=== PATIENT | male | born 1960 | race Caucasian/White ===

== ENCOUNTER 2016-07-17 12:33 | Inpatient (IN) | payer MEDICARE, OTHER ==
[2016-07-17] VITALS (12 sets, daily range): BP systolic 141–164; BP diastolic 83–99; PULSE 71–93; RESP 16–20; TEMP 97.5–98.3; O2SAT 94–97
[~2016-07-17 12:33] MED LIST: ADVAI250I PO; APIX5 PO; BENI20TA25 PO; CHOL50006 PO; CLOP75 PO; IPRAAER IN; LIPI20TA PO; PROBCAP4 PO; TAB-TAB PO
[2016-07-17] MEDS ORDERED: SODIUM CHLORIDE 0.9% FLUSH 10 ML FLUSH IV FLUSH PRN (13:30)
[2016-07-17] MEDS ORDERED: IPRAAER INH (14:22)
[2016-07-17] MEDS ORDERED: HYDR25TA5 PO (14:22)
[2016-07-17] MEDS ORDERED: ZOLO100T PO (14:22)
[2016-07-17] MEDS ORDERED: OLME0.09 PO (14:22)
[2016-07-17] MEDS ORDERED: ASPI81CH37 CHEW (14:22)
[2016-07-17] MEDS ORDERED: ALBUAER3 INH (14:22)
[2016-07-17] MEDS ORDERED: WARF-21 PO (14:22)
[2016-07-17] MEDS ORDERED: WARF-23 PO (14:22)
[2016-07-17] MEDS ORDERED: LACTCAP8 PO (14:22)
[2016-07-17] MEDS ORDERED: VITA500T49 PO (14:22)
[2016-07-17] MEDS ORDERED: ATOR1TAB18 PO (14:22)
[2016-07-17] MEDS ORDERED: MULTTAB67 PO (14:22)
[2016-07-17] MEDS ORDERED: VITA100064 PO (14:22)
--- NOTE | 2016-07-17 14:38 | HHI.HP ---
History of Present Illness Chief Complaint: Pt c/o Right worsening calf pain when walking a 1/4 mile Pt also c/o intermittent sudden onset of RLE feeling cold and discolored Pt reported these episodes started 15 months ago on and off with last episode in April of this year History of Present Illness Mr. Alvarez is a pleasant 55/M patient with a PMH of COPD, Hyperlipidemia, HTN and PVD. Pt was seen in our out patient clinic in May 2016 who then c/o Right worsening calf pain when walking a 1/4 mile with intermittent sudden onset of RLE feeling cold and discolored, pt reported these episodes started 15 months ago on and off with last episode in April of this year. No new episodes reported today. Pt overall feels well with no change since last assessment in May. Mr. Alvarez has had bilateral lower extremity bypasses 2 interventions on the right, however he has had multiple interventions for graft thromboses, by his estimate he has had 8 distinct episodes of arterial lysis on the RLE most recently in March and April of this year. The last episodes have been during the time the patient has been on systemic anticoagulation with Coumadin. (Shannon Haque) Past/Family/Social History Past Medical History COPD HTN Hyperlipidemia Peripheral Vascular Disease Past Surgical History Multiple Vascular Interventions for graft thromboses Social History Currently smokes daily (cigarettes) ETOH (20 cans of beer per week) (Shannon Haque) Home Medications Reported Medications Cyanocobalamin (Vitamin B12)500 Mcg Tab1,000 Mcg PO DAILY #1 BOTTLE 07/17/16 Sertraline (Zoloft)100 Mg Khe893 Mg PO DAILY #30 TAB Ref 0 07/17/16 Hydrochlorothiazide 25 Mg Tab25 Mg PO DAILY #30 TAB Ref 0 07/17/16 Warfarin 7.5 Mg Tab7.5 Mg PO #30 TAB Ref 0 07/17/16 Warfarin 5 Mg Tab5 Mg PO #30 TAB Ref 0 07/17/16 Aspirin (Aspirin Low Dose)81 Mg Chew81 Mg CHEW DAILY Ref 0 07/17/16 Lactobacillus Acidophilus (Probiotic)1 Cap Cap1 Cap PO TIDAC #90 CAP Ref 0 07/17/16 Olmesartan 20 Mg Tab20 Mg PO DAILY #30 TAB Ref 0 07/17/16 Multiple Vitamin 1 Tab1 Tab PO DAILY Ref 0 07/17/16 Albuterol 8.5 GM Inh (Proair Hfa 8.5 GM Inh)90 Mcg/Act Aer2 Puff INH Q4-6H PRN ( SHORTNESS OF BREATH) #1 INHALER Ref 0 108 mcg/actuation 07/17/16 Ipratropium-Albuterol Inh (Combivent Respimat Inh)20-100 Chcf/Act Aero1 Puff INH QID #1 INHALER Ref 0 07/17/16 Atorvastatin 80 Mg Tab80 Mg PO HS #30 TAB Ref 0 07/17/16 Cholecalciferol (Vitamin D)1,000 Unit Tab5,000 Units PO DAILY #1 BOTTLE Ref 0 07/17/16 Discontinued Reported Medications Probiotic Product (Probiotic Acidophilus) Cap1 Tab PO DAILY 04/16/15 Discontinued Scripts Olmesartan Medoxomil (Benicar)20 Mg Tab20 Mg PO DAILY #90 TAB Ref 0 Prov:Khang Brown MD 05/12/15 Apixaban (Eliquis)5 Mg Tab5 Mg PO BID 30 Days Prov:Landry Khan DO 04/20/15 Atorvastatin (Lipitor 20 Mg Tab)20 Mg Tab40 Mg PO DAILY #90 TAB Ref 0 Prov:Landry Khan DO 04/20/15 Fluticasone/Salmeterol 250 mcg/50 mcg (Advair Diskus 250/50)Fluticasone/ Salmeterol 250/50 Inh1 Puff PO BID #1 INHALER Ref 0 Needs appointment. Prov:Khang Brown MD 10/06/14 Clopidogrel Bisulfate (Plavix)75 Mg Tab75 Mg PO DAILY #90 TAB Ref 0 Prov:Khang Brown MD 10/06/14 Multiple Vitamin (Multivitamin)1 Tab Tab1 Tab PO DAILY #180 TAB Ref 0 Prov:Khang Brown MD 08/20/14 Ipratropium-Albuterol (Combivent Respimat)Respimat Aer1 Inhalation IN DIRECTED #1 AER Ref 0 Prov:Khang Brown MD 08/20/14 Cholecalciferol (Vitamin D)5,000 Unit Tab5,000 Unit PO DAILY #90 TAB Ref 1 Prov:Khang Brown MD 08/20/14 Coded Allergies: No Known Allergies (Verified , 04/16/15) Review of Systems Musculoskeletal: COMPLAINS OF: Joint pain, Muscle aches (Right calf pain when walking a 1/4 mile ), Stiffness, Joint Swelling, Back pain, Neck pain (Shannon Haque) Physical Exam Vitals/I&O Date Time Temp Pulse Resp B/P Pulse Ox O2 Delivery O2 Flow Rate FiO2 07/17/16 13:50 98.3 91 17 149/99 97 Neuro: Pt A&OX3 in NAD GCS 15 CN 2-12 Intact Normal neuro assessment without focal findings Neck: Supple NO JVD Distention Heart: RRR + S1, S2 Lungs: CTA w/o wheezes Breath sounds equal bilaterally No accessory muscle use Abdomen: S/NT Vascular: Strong palpable Bilat Radial/Femoral/DP Bilat LE warm with motor intact Cap refill less than 3 sec No wounds or ulcers present Extremities: Full ROM without swelling or tenderness UE strength 5/5 LE strength 5/5 (Shannon Haque) Assessment and Plan Assessment: (1) PAD (peripheral artery disease) Status: Chronic Plan Plan Angiogram on Sun07/19/16 with RLE bypass scheduled for later this week Hold Coumadin therapy Labs drawn today Shannon BELL [facility]/[employer] [phone] (Shannon Haque) Plan Pt w/ R LE bypass which has undergone arterial lysis x 8, clearly failing. Admitted for coumadin reversal in preparation for angiogram and re-do distal bypass, likely with arm vein. (Marco Antonio Fernández MD) Shannon Haque Jul 17, 2016 14:38 Marco Antonio Fernández MD Jul 17, 2016 16:32
[2016-07-17] MEDS ORDERED: ALBUTEROL SULFATE 90 MCG/ACT HFA 18 GM INHALER INH PRN (15:15)
[2016-07-17 15:46] LABS: HEMATOCRIT 42.9 % (39.0-51.0); MEAN CELL VOLUME 93.6 FL (80.0-100.0); MEAN CORPUSCULAR HEMOGLOBIN 31.4 PG (27.0-34.0); MEAN CORPUSCULAR HGB CONC 33.6 % (32.0-36.0); PLATELET COUNT 196 TH/MM3 (150-450); RED BLOOD COUNT 4.58 MIL/MM3 (4.50-5.90); RED CELL DISTRIBUTION WIDTH 14.4 % (11.6-17.2); REVIEW FLAG FINAL; WHITE BLOOD COUNT 7.9 TH/MM3 (4.0-11.0)
[2016-07-17 15:57] LABS: BICARBONATE 26.4 MEQ/L (21.0-32.0); POTASSIUM 3.6 MEQ/L (3.5-5.1)
[2016-07-17] MEDS ORDERED: LORazepam 2 MG TAB PO PRN (16:00)
[2016-07-17] MEDS ORDERED: LORazepam 1 MG TAB PO PRN (16:00)
[2016-07-17] MEDS ORDERED: LORazepam 2 MG/ML VIAL IV PUSH PRN ×4 (16:00)
[2016-07-17] MEDS ORDERED: FLUMAZENIL 0.5 MG/5 ML VIAL IV PUSH PRN (16:00)
[2016-07-17 16:07] LABS: INTERNATIONAL NORMALIZED RATIO 2.3 RATIO; PROTHROMBIN TIME - PATIENT 26.6 SEC (9.8-11.6)
[2016-07-17] MEDS ORDERED: NON-FORMULARY DRUG (Ipratropium-Albuterol Inh (Combivent Respimat Inh) 1 PUFF) INH SCH (18:00)
[2016-07-17] MEDS: ALBUTEROL SULFATE 90 MCG/ACT HFA 18 GM INHALER INH SCH ×2 (18:39→21:00)
[2016-07-17] MEDS: ATORVASTATIN 80 MG TAB PO SCH (21:10)
[2016-07-18] VITALS (27 sets, daily range): BP systolic 145–162; BP diastolic 83–98; PULSE 65–90; RESP 16–19; TEMP 98.1–99.1; O2SAT 94–99
--- NOTE | 2016-07-18 08:36 | PD.VS.PN ---
Subjective Subjective/Hospital Course Pt w/o complaints No new events reported Objective Vitals/I&O Date Time Temp Pulse Resp B/P Pulse Ox O2 Delivery O2 Flow Rate FiO2 07/18/16 08:21 99.1 72 18 162/85 97 07/18/16 07:00 66 07/18/16 06:00 67 07/18/16 05:00 72 07/18/16 04:00 74 07/18/16 04:00 98.4 79 16 148/91 96 07/18/16 03:00 66 07/18/16 02:00 66 07/18/16 01:00 72 07/18/16 00:00 90 07/18/16 00:00 98.1 79 16 149/92 97 07/17/16 23:00 78 07/17/16 22:00 86 07/17/16 21:00 152/88 07/17/16 21:00 84 07/17/16 20:00 98.3 71 16 164/97 94 07/17/16 20:00 78 07/17/16 19:00 86 07/17/16 18:00 90 07/17/16 17:00 72 07/17/16 16:00 77 07/17/16 15:00 97.5 82 20 141/83 95 07/17/16 15:00 78 07/17/16 14:00 93 07/17/16 13:54 83 07/17/16 13:50 98.3 91 17 149/99 97 07/18/16 07/18/16 07/18/16 07:00 15:00 23:00 Intake Total 460 ml Balance 460 ml Physical Exam GENERAL: A&OX3, NAD, GCS15 SKIN: Warm and dry. CARDIOVASCULAR: RRR, +S1,S2 RESPIRATORY: BS CTA GASTROINTESTINAL: Abdomen S/NT MUSCULOSKELETAL: No cyanosis, or edema. bilat feet warm with motor intact, pt moves all ext well with 5/5 strength Palpable bilat DP Laboratory Laboratory Tests Test 07/17/16 15:28 White Blood Count 7.9 Red Blood Count 4.58 Hemoglobin 14.4 Hematocrit 42.9 Mean Corpuscular Volume 93.6 Mean Corpuscular Hemoglobin 31.4 Mean Corpuscular Hemoglobin 33.6 Concent Red Cell Distribution Width 14.4 Platelet Count 196 Mean Platelet Volume 8.5 Prothrombin Time 26.6 Prothromb Time International 2.3 Ratio Sodium Level 139 Potassium Level 3.6 Chloride Level 107 Carbon Dioxide Level 26.4 Anion Gap 6 Blood Urea Nitrogen 6 Creatinine 0.81 Estimat Glomerular Filtration 99 Rate Random Glucose 162 Calcium Level 8.3 Assessment and Plan Assessment: (1) PAD (peripheral artery disease) Status: Chronic Plan Pt w/ R LE bypass which has undergone arterial lysis x 8, clearly failing. Admitted for Coumadin reversal in preparation for angiogram and re-do distal bypass, likely with arm vein. Plan Hold Coumadin NPO after midnight Angiogram tomorrow am Right arm restrictions- NO B/P/lab draws Shannon BELL [facility]/[employer] [phone] Shannon Haque Jul 18, 2016 08:35
[2016-07-18] MEDS: CYANOCOBALAMIN 1,000 MCG TAB PO SCH (08:40)
[2016-07-18] MEDS: CHOLECALCIFEROL (VIT D3) 5000 UNIT CAP PO SCH (08:40)
[2016-07-18] MEDS: HYDROCHLOROTHIAZIDE 25 MG TAB PO SCH (08:40)
[2016-07-18] MEDS: SERTRALINE HCL 100 MG TAB PO SCH (08:40)
[2016-07-18] MEDS: MULTIVITAMIN TAB PO SCH (08:40)
[2016-07-18] MEDS: LOSARTAN 50 MG TAB PO SCH (08:40)
[2016-07-18] MEDS: ALBUTEROL SULFATE 90 MCG/ACT HFA 18 GM INHALER INH SCH ×4 (08:41→21:54)
[2016-07-18] MEDS: TIOTROPIUM BROMIDE 18 MCG INH INH SCH (08:41)
[2016-07-18] MEDS: ASPIRIN 81 MG CHEW TAB CHEW SCH (08:41)
[2016-07-18] MEDS: oxyCODONE/ACETAMINOPHEN 5 MG/325 MG TAB PO PRN ×3 (08:41→21:54)
[2016-07-18 17:08] LABS: INTERNATIONAL NORMALIZED RATIO 1.6 RATIO
[2016-07-18] MEDS: ATORVASTATIN 80 MG TAB PO SCH (21:54)
[2016-07-18] MEDS: ZOLPIDEM TARTRATE 5 MG TAB PO PRN (22:06)
[2016-07-19] VITALS (24 sets, daily range): BP systolic 142–150; BP diastolic 83–91; PULSE 59–92; RESP 16–20; TEMP 98–98.5; O2SAT 98–100
--- NOTE | 2016-07-19 05:58 | PD.VS.PN ---
Pre-operative Note Pre-operative diagnosis: failing R LE bypass, PAD Planned procedure: Aortogram w/ R LE angiogram Interval History: Pt admitted for coumadin reversal: INR 2.3 to 1.6 yesterday, coumadin held. No interval change. Labs: Laboratory Results Test 07/17/16 07/18/16 15:28 16:35 White Blood Count 7.9 TH/MM3 (4.0-11.0) Red Blood Count 4.58 MIL/MM3 (4.50-5.90) Hemoglobin 14.4 GM/DL (13.0-17.0) Hematocrit 42.9 % (39.0-51.0) Mean Corpuscular Volume 93.6 FL (80.0-100.0) Mean Corpuscular Hemoglobin 31.4 PG (27.0-34.0) Mean Corpuscular Hemoglobin 33.6 % Concent (32.0-36.0) Red Cell Distribution Width 14.4 % (11.6-17.2) Platelet Count 196 TH/MM3 (150-450) Mean Platelet Volume 8.5 FL (7.0-11.0) Sodium Level 139 MEQ/L (136-145) Potassium Level 3.6 MEQ/L (3.5-5.1) Chloride Level 107 MEQ/L (98-107) Carbon Dioxide Level 26.4 MEQ/L (21.0-32.0) Anion Gap 6 MEQ/L (5-15) Blood Urea Nitrogen 6 MG/DL (7-18) Random Glucose 162 MG/DL (74-106) Calcium Level 8.3 MG/DL (8.5-10.1) Prothromb Time International 1.6 RATIO Ratio Blood: none needed Imaging: will make in OR Orders: NPO No antibiotics necessary Post-operative destination: DOCU then floor Cardiac diet after angio then NPO after MN tonight for bypass tomorrow () Operative site marked: Yes Consent: Informed consent has been obtained from Olu Alvarez. I have explained the procedure in detail and discussed the risks, benefits, and potential complications. All questions have been answered. Marco Antonio Fernández MD Jul 19, 2016 05:58
[2016-07-19] MEDS ORDERED: HEPARIN SODIUM - IV 10,000 UNITS/10 ML VIAL ONE (08:16)
[2016-07-19] MEDS ORDERED: MIDAZOLAM HCL 5 MG/ML VIAL (1 ML) ONE (08:17)
[2016-07-19] MEDS ORDERED: IOHEXOL 300 MG/ML 50 ML BTL (for RAD DIAG) OTHER ONE (08:33)
--- NOTE | 2016-07-19 08:50 | HHI.PR ---
Immediate Post Op Note Procedure Date: Jul 19, 2016 Pre Op Diagnosis: failing R LE bypass, PAD Post Op Diagnosis: failing R LE bypass, PAD Surgeon: Marco Antonio Fernández Client Success Director(s): none Procedure: Aortogram w/ R LE angiogram Findings: patent bypass PAINT MIXER HAND/proximal SFA to BK pop good runoff Additional Information: 4F sheath to be removed in DOCU from LEFT groin Complications: none Specimen(s) removed: none Estimated blood loss: 5 mL Anesthesia: MAC Drains: None Patient to: Other (DOCU) Marco Antonio Fernández MD Jul 19, 2016 08:50
[2016-07-19] MEDS: SERTRALINE HCL 100 MG TAB PO SCH (12:18)
[2016-07-19] MEDS: HYDROCHLOROTHIAZIDE 25 MG TAB PO SCH (12:18)
[2016-07-19] MEDS: LOSARTAN 50 MG TAB PO SCH (12:18)
[2016-07-19] MEDS: TIOTROPIUM BROMIDE 18 MCG INH INH SCH (12:19)
[2016-07-19] MEDS: ALBUTEROL SULFATE 90 MCG/ACT HFA 18 GM INHALER INH SCH ×4 (12:19→21:00)
[2016-07-19] MEDS: MULTIVITAMIN TAB PO SCH (12:19)
[2016-07-19] MEDS: ASPIRIN 81 MG CHEW TAB CHEW SCH (12:19)
[2016-07-19] MEDS: CYANOCOBALAMIN 1,000 MCG TAB PO SCH (12:19)
[2016-07-19] MEDS: CHOLECALCIFEROL (VIT D3) 5000 UNIT CAP PO SCH (12:19)
[2016-07-19] MEDS: oxyCODONE/ACETAMINOPHEN 5 MG/325 MG TAB PO PRN ×2 (12:20→18:23)
--- NOTE | 2016-07-19 13:33 | MP ---
cc: MARCO ANTONIO FERNÁNDEZ MD DATE OF SURGERY: 07/19/2016 PREOPERATIVE DIAGNOSIS Failing right lower extremity bypass. POSTOPERATIVE DIAGNOSIS Failing right lower extremity bypass. PROCEDURE Aortogram with right lower extremity angiogram. ATTENDING SURGEON Marco Antonio Fernández MD ANESTHESIA Mild sedation with local. INDICATIONS FOR SURGERY Mr. Alvarez is a gentleman who has a right femoral to popliteal artery bypass. This has failed eight times, it had been lysed, all of these done elsewhere. He presents for preoperative planning for a redo bypass with autogenous conduit. DESCRIPTION OF PROCEDURE Informed consent was obtained from the patient. He was taken to the operating room and placed supine on the operating table. Appropriate time-out was taken to insure the patient identity, the operative site and planned procedure. No antibiotics were necessary since this is a clean procedure without planned implantation or any foreign object. Everyone in the room agreed with timeout and we proceeded. There was no prior catheterization imaging available for my review. Both groins were prepped and draped and the left groin was anesthetized with 1% lidocaine. A 21 gauge micropuncture needle was used to access the left common femoral artery, this was exchanged using Seldinger technique with micropuncture sheath through which a 0.035 Glidewire was introduced. The micropuncture sheath was exchanged for a 4-[place] sheath and a VCF catheter was placed over the wire into the sheath and aortogram with pelvic arteriogram arteriogram was obtained. The Glidewire was reintroduced and navigated down to the right common femoral artery and the VCF catheter was advanced over this and a right lower extremity arteriogram was obtained. Wire, catheter and sheath were removed, pressure was held for hemostasis and there were no complications. I was present and scrubbed for the entire procedure. INTERPRETATION IMAGES The patient had patent renal arteries, patent infrarenal aorta, patent common iliac arteries, patent external carotid and hypogastric arteries bilaterally. The right common femoral artery and profunda are patent. The SFA is occluded. There is a bypass that emanates immediately opposite the profunda orifice, it appears to be prosthetic and the outflow of the bypass was below-knee popliteal artery. There is three-vessel runoff down below this. Marco Antonio Fernández MD RJF/TLAzael /11:38 AM /1:04 PM JOVI
--- NOTE | 2016-07-19 19:51 | PD.VS.PN ---
Pre-operative Note Pre-operative diagnosis: Failing R LE bypass, PAD Planned procedure: R LE bypass (redo) with R leg and maybe R UE vein Interval History: PT admitted for coumadin reversal. Ready for OR. Motor intact. Labs: Laboratory Results Test 07/17/16 07/18/16 15:28 16:35 White Blood Count 7.9 TH/MM3 (4.0-11.0) Red Blood Count 4.58 MIL/MM3 (4.50-5.90) Hemoglobin 14.4 GM/DL (13.0-17.0) Hematocrit 42.9 % (39.0-51.0) Mean Corpuscular Volume 93.6 FL (80.0-100.0) Mean Corpuscular Hemoglobin 31.4 PG (27.0-34.0) Mean Corpuscular Hemoglobin 33.6 % Concent (32.0-36.0) Red Cell Distribution Width 14.4 % (11.6-17.2) Platelet Count 196 TH/MM3 (150-450) Mean Platelet Volume 8.5 FL (7.0-11.0) Sodium Level 139 MEQ/L (136-145) Potassium Level 3.6 MEQ/L (3.5-5.1) Chloride Level 107 MEQ/L (98-107) Carbon Dioxide Level 26.4 MEQ/L (21.0-32.0) Anion Gap 6 MEQ/L (5-15) Blood Urea Nitrogen 6 MG/DL (7-18) Random Glucose 162 MG/DL (74-106) Calcium Level 8.3 MG/DL (8.5-10.1) Prothromb Time International 1.6 RATIO Ratio Blood: T&C 2U Imaging: CLIPMAN to BK pop bypass Orders: NPO after MN Ancef 1g IV OCTOR Post-operative destination: PACU, CIC Operative site marked: Yes Consent: Informed consent has been obtained from Olu Alvarez. I have explained the procedure in detail and discussed the risks, benefits, and potential complications. All questions have been answered. Marco Antonio Fernández MD Jul 19, 2016 19:51
[2016-07-19] MEDS: ZOLPIDEM TARTRATE 5 MG TAB PO PRN (21:30)
[2016-07-19] MEDS: ATORVASTATIN 80 MG TAB PO SCH (21:30)
[2016-07-19] MEDS: LACTATED RINGER'S 1000 ML INJ 1,000 ML IV SCH (22:53)
[2016-07-20] VITALS (18 sets, daily range): BP systolic 116–159; BP diastolic 76–95; PULSE 62–117; RESP 16–18; TEMP 97.8–98.8; O2SAT 96–100
[2016-07-20] MEDS: oxyCODONE/ACETAMINOPHEN 5 MG/325 MG TAB PO PRN ×2 (00:05→06:46)
[2016-07-20] MEDS ORDERED: THROMBIN (TOPICAL) 20,000 UNIT SPRAY KIT ONE ×2 (07:11→12:04)
[2016-07-20] MEDS ORDERED: HEPARIN SODIUM - IV 10,000 UNITS/10 ML VIAL ONE (07:11)
[2016-07-20] MEDS ORDERED: PROTAMINE SULFATE 50 MG/5 ML VIAL ONE (07:12)
[2016-07-20] MEDS ORDERED: fentaNYL CITRATE 250 MCG/5 ML AMP ONE ×2 (07:32→13:37)
[2016-07-20] MEDS ORDERED: ACETAMINOPHEN 1000 MG/100 ML VIAL IV ONE (07:33)
[2016-07-20] MEDS ORDERED: MIDAZOLAM HCL 2 MG/2 ML VIAL ONE (07:39)
[2016-07-20] MEDS ORDERED: FAMOTIDINE 20 MG/2 ML VIAL ONE (07:39)
[2016-07-20] MEDS ORDERED: ceFAZolin 2 GM PREMIX 50 ML ONE ×2 (07:48→12:23)
[2016-07-20] MEDS ORDERED: HYDROmorphone HCL PF 2 MG/ML VIAL ONE (07:51)
[2016-07-20] MEDS ORDERED: SODIUM CHLORID 0.9% 500 ML INJ 500 ML IV ONE (12:00)
[2016-07-20] MEDS ORDERED: NEOSTIGMINE METHYLSULFATE 10 MG/10 ML VIAL IV PUSH ONE (12:00)
[2016-07-20] MEDS ORDERED: ONDANSETRON HCL 4 MG/2 ML VIAL IV PUSH ONE (12:00)
[2016-07-20] MEDS ORDERED: LACTATED RINGER'S 1000 ML INJ 1,000 ML IV ONE (12:00)
[2016-07-20] MEDS ORDERED: NORMOSOL R INJ 2,000 ML IV ONE (12:00)
[2016-07-20] MEDS ORDERED: PROPOFOL 200 MG/20 ML AMP IV ONE (12:00)
[2016-07-20] MEDS ORDERED: ePHEDrine/NS 25 MG/5 ML SYR IV ONE (12:00)
[2016-07-20] MEDS ORDERED: THROMBIN (TOPICAL) 20,000 UNIT SPRAY KIT OTHER ONE (12:13)
--- NOTE | 2016-07-20 13:08 | HHI.PR ---
Immediate Post Op Note Procedure Date: Jul 20, 2016 Pre Op Diagnosis: Failing R LE bypass, PAD Post Op Diagnosis: Failing R LE bypass, PAD Surgeon: Marco Antonio Fernández Electronic Die Maker(s): Ramon Dove Procedure: R COUGAR HUNTER-BK pop bypass (redo) using R cephalic vein Findings: intense scar tissue Additional Information: Good DP Signal at end of case Complications: none apparent Specimen(s) removed: none Estimated blood loss: 250mL Anesthesia: General Drains: None Fluids: 3000mL x'oid; 1000 UOP IVF Patient to: PACU Patient Condition: Good Date/Time of Procedure: SEE SURGICAL CARE RECORD Marco Antonio Fernández MD Jul 20, 2016 13:08
[2016-07-20] MEDS ORDERED: *RESP: ALBUTEROL 2.5 MG/3 ML NEB (PRN) PERIprocedural Use ONLY NEB ONE (13:25)
[2016-07-20] MEDS ORDERED: DO NOT ADM ANY ANTICOAGULANT DRUGS PRN (13:27)
[2016-07-20] MEDS: LACTATED RINGER'S 1000 ML INJ 1,000 ML IV SCH ×2 (13:56→15:04)
[2016-07-20] MEDS ORDERED: HYDROmorphone HCL 2 MG TAB PO PRN (14:00)
[2016-07-20] MEDS ORDERED: MORPHINE SULFATE 4 MG/ML INJ IV PRN (14:00)
[2016-07-20] MEDS: ASPIRIN 81 MG CHEW TAB CHEW SCH (15:03)
[2016-07-20] MEDS ORDERED: NALOXONE HCL 0.4 MG/ML AMP IV PRN (15:15)
[2016-07-20] MEDS: MULTIVITAMIN TAB PO SCH (15:22)
[2016-07-20] MEDS: TIOTROPIUM BROMIDE 18 MCG INH INH SCH (15:22)
[2016-07-20] MEDS: LOSARTAN 50 MG TAB PO SCH (15:22)
[2016-07-20] MEDS: SERTRALINE HCL 100 MG TAB PO SCH (15:22)
[2016-07-20] MEDS: CHOLECALCIFEROL (VIT D3) 5000 UNIT CAP PO SCH (15:22)
[2016-07-20] MEDS: HYDROCHLOROTHIAZIDE 25 MG TAB PO SCH (15:22)
[2016-07-20] MEDS: CYANOCOBALAMIN 1,000 MCG TAB PO SCH (15:23)
[2016-07-20] MEDS: ALBUTEROL SULFATE 90 MCG/ACT HFA 18 GM INHALER INH SCH ×3 (15:23→21:00)
[2016-07-20] MEDS: DOCUSATE SODIUM 100 MG CAP PO SCH ×2 (21:00→21:25)
[2016-07-20] MEDS: ZOLPIDEM TARTRATE 5 MG TAB PO PRN (21:24)
[2016-07-20] MEDS: ATORVASTATIN 80 MG TAB PO SCH (21:24)
[2016-07-20] MEDS: PCA - TOTAL MG MORPHINE DELIVERED PER SHIFT SCH (22:00)
--- NOTE | 2016-07-20 23:08 | MP ---
cc: RODRICK FERNÁNDEZ MD DATE OF SURGERY 07/20/16 PREOPERATIVE DIAGNOSIS Failing right lower extremity bypass. POSTOPERATIVE DIAGNOSIS Failing right lower extremity bypass. PROCEDURE 1. Right femoral below-knee popliteal artery bypass 2. Redo procedure. 3. [place] of right cephalic vein SURGEON Jeanine Fernández. FANS CLERK SURGEON Robert Dove ANESTHESIA General INDICATIONS Mr. Alvarez is a 55-year gentleman who has bilateral lower extremity prosthetic bypasses. He has had his right leg prosthetic bypass lysed opened eight separate times. I had a long discussion with the patient and think that in order to preserve his limb, he should have this entire bypass redone with autogenous conduit. Preoperative imaging suggested his ipsilateral saphenous vein was marginal but potentially usable. Intraoperatively, it was found that it was indeed too sclerotic to use as an arterial bypass and as such a right cephalic vein was harvested to perform his bypass. PROCEDURE IN DETAIL Informed consent was obtained from the patient. He was taken to the operating room and placed supine on the operating table. An appropriate time-out was taken to ensure the patient's identity and the operative site and the planned procedure. Two grams of Ancef was initiated prior to skin incision and was redosed 4 hours into the case according to pharmacologic principals. Everyone in the room agreed to the timeout and we proceeded. The right arm and bilateral lower extremities and torso were prepped and draped. An incision was made in the patient's right groin, carried down to subcutaneous tissue with electrocautery. The heath of the previous fem-pop bypass was identified and dissected free as was the profunda and proximal common femoral artery. There was dense scar tissue encountered. All three of these vessels were encircled with vessel loop. The incision was made on medial calf, carried down to subcutaneous tissue with electrocautery. Dense scar tissue was again encountered, but we dissected tediously just distal to this retracting the popliteal and tibial veins and thereby finding the below-knee popliteal artery immediately proximal to the bifurcation into the anterior tibial artery and the TP trunk. The previous distal anastomosis was just cephalad to this. This artery was encircled with a vessel loop. A tunnel was then created between these two. The saphenous vein was identified to the bottom part of groin incision and it was dissected free but, upon doing this, it was found that it was unusable. The proximal and distal ends were clipped with a hemoclip and the vein was kept in saline. An incision was made in patient's right arm in the mid upper arm carried down subcutaneous tissue with electrocautery to the cephalic vein. The cephalic vein was then dissected free from the deltopectoral groove all the way down to the wrist. Side branches were ligated with 3-0 silk and the vein was preserved at all times. The vein was transected proximally and distally. Distally at the wrist it was oversewn with a 3-0 silk. Proximally at the shoulder it was oversewn with 4-0 Prolene. The entire wound was then irrigated, made hemostatic and closed with 2-0 Polysorb, 3-0 Polysorb and 4-0 Monocryl. The vein was flushed, marked for orientation. The patient was systemically heparinized and throughout the remainder of the case ACT was kept greater than 250. Proximal and distal control the common femoral, previous bypass and profunda were obtained with profunda clamps and a longitudinal arteriotomy was made with an 11 blade, extended with [place] scissors. The vein was spatulated and sewn in a reverse fashion with the proximal anastomosis being performed end-to-side with running 5-0 Prolene suture. At the conclusion, the vein was clamped and marked for orientation and passed through the tunnel. The previous fem-pop bypass was then clipped to avoid occlusion of the autogenous vein bypass by competitive flow. The distal popliteal artery was clamped with profunda clamps and a longitudinal arteriotomy was made below 11 blade and extended with [place] scissors. The vein was cut to an appropriate length, spatulated and sewn end-to-side with running 6-0 Prolene suture. At the completion, it was flushed and noted to be hemostatic. The clamps were released. There was a nice and strong Doppler signal in the dorsalis pedis. The anastomoses were made hemostatic with Surgicel and spray thrombin. The heparin was reversed with protamine and all the wounds were closed with 2-0 Polysorb, 3-0 Polysorb and 4-0 Monocryl. Sponge, needle counts were correct at the end of the case. I was present and scrubbed for the entire procedure. MD MARIANELA Newman/ /3:21 PM /10:47 PM MTDCarmelita
[2016-07-20] MEDS: MORPHINE SULFATE 30 MG/30 ML PCA IV SCH (23:46)
[2016-07-21] VITALS (24 sets, daily range): BP systolic 120–143; BP diastolic 73–86; PULSE 89–128; RESP 18–20; TEMP 98–98.8; O2SAT 93–99
[2016-07-21 04:07] LABS: HEMATOCRIT 33.1 % (39.0-51.0); MEAN CELL VOLUME 91.9 FL (80.0-100.0); MEAN CORPUSCULAR HGB CONC 34.8 % (32.0-36.0); PLATELET COUNT 171 TH/MM3 (150-450); REVIEW FLAG FINAL
[2016-07-21 04:32] LABS: BICARBONATE 25.9 MEQ/L (21.0-32.0); POTASSIUM 3.7 MEQ/L (3.5-5.1)
[2016-07-21] MEDS: MORPHINE SULFATE 30 MG/30 ML PCA IV SCH (05:56)
[2016-07-21] MEDS: PCA - TOTAL MG MORPHINE DELIVERED PER SHIFT SCH (06:00)
--- NOTE | 2016-07-21 06:59 | PD.VS.PN ---
Subjective POD #: 1 Procedure(s): R fem-BK pop with R cephalic vein Subjective/Hospital Course Pt had pain yesterday "all over" but had relief with ONLINE MEDIA DIRECTOR; notes that dilaudid works better for pain. R leg cramping but foot okay Otherwise looks great Objective Vitals/I&O Date Time Temp Pulse Resp B/P Pulse Ox O2 Delivery O2 Flow Rate FiO2 07/21/16 06:16 18 07/21/16 06:00 101 07/21/16 06:00 18 07/21/16 05:56 18 07/21/16 05:00 96 07/21/16 04:00 94 07/21/16 03:00 97 Nasal Cannula 2.00 07/21/16 03:00 98.6 98 18 120/73 97 07/21/16 03:00 96 07/21/16 02:00 98 07/21/16 01:00 98 07/21/16 00:00 100 07/20/16 23:46 18 07/20/16 23:00 98.8 102 18 127/84 99 07/20/16 23:00 106 07/20/16 23:00 99 Nasal Cannula 2.00 07/20/16 22:00 96 07/20/16 22:00 16 07/20/16 21:00 104 07/20/16 20:00 106 07/20/16 19:00 98.2 117 18 116/76 98 07/20/16 19:00 96 07/20/16 18:00 108 07/20/16 17:02 107 07/20/16 16:00 109 07/20/16 15:30 98.0 114 16 147/94 96 07/20/16 15:30 102 07/20/16 14:30 99.3 101 14 141/91 96 Nasal Cannula 2 Arterial Line 07/20/16 14:15 100 14 142/89 95 Nasal Cannula 2 Arterial Line 07/20/16 14:00 96 14 141/88 96 Nasal Cannula 2 133/71 07/20/16 13:45 92 14 130/82 95 Nasal Cannula 3 133/71 07/20/16 13:30 103 11 151/92 92 Simple Mask 10 140/71 07/20/16 13:25 98.7 106 17 156/88 92 Simple Mask 10 149/98 07/20/16 07:15 98.0 62 18 159/95 100 07/20/16 07:08 70 Exam: R UE incision c/d/i; appropriate ecchymoses, minimal swelling R groin vac in place R lower leg incision c/d/i Pulses: palpable DP Laboratory Laboratory Tests Test 07/21/16 03:55 White Blood Count 12.0 Red Blood Count 3.60 Hemoglobin 11.5 Hematocrit 33.1 Mean Corpuscular Volume 91.9 Mean Corpuscular Hemoglobin 32.0 Mean Corpuscular Hemoglobin 34.8 Concent Red Cell Distribution Width 14.0 Platelet Count 171 Mean Platelet Volume 8.6 Sodium Level 139 Potassium Level 3.7 Chloride Level 103 Carbon Dioxide Level 25.9 Anion Gap 10 Blood Urea Nitrogen 14 Creatinine 1.01 Estimat Glomerular Filtration 76 Rate Random Glucose 105 Calcium Level 8.2 Assessment and Plan Assessment: (1) PAD (peripheral artery disease) Status: Chronic Plan s/p R fem-BK pop (redo) with R cephalic vein Look great, palpable pulse 1. Change ONLINE MEDIA DIRECTOR to dilaudid 2. OOB/PT 3. Will start plavix tomorrow - anticipate d/c on ASA/plavix 4. Marco Antonio Isaac MD Jul 21, 2016 06:59
[2016-07-21] MEDS ORDERED: NALOXONE HCL 0.4 MG/ML AMP IV PRN (07:00)
[2016-07-21] MEDS: HYDROmorphone HCL PCA 6 MG/30 ML IV SCH ×2 (07:24→16:06)
[2016-07-21] MEDS: ALBUTEROL SULFATE 90 MCG/ACT HFA 18 GM INHALER INH SCH ×4 (08:38→21:00)
[2016-07-21] MEDS: TIOTROPIUM BROMIDE 18 MCG INH INH SCH (08:38)
[2016-07-21] MEDS: HYDROCHLOROTHIAZIDE 25 MG TAB PO SCH (08:39)
[2016-07-21] MEDS: CYANOCOBALAMIN 1,000 MCG TAB PO SCH (08:39)
[2016-07-21] MEDS: DOCUSATE SODIUM 100 MG CAP PO SCH ×2 (08:39→20:59)
[2016-07-21] MEDS: MULTIVITAMIN TAB PO SCH (08:39)
[2016-07-21] MEDS: LOSARTAN 50 MG TAB PO SCH (08:39)
[2016-07-21] MEDS: ASPIRIN 81 MG CHEW TAB CHEW SCH (08:39)
[2016-07-21] MEDS: CHOLECALCIFEROL (VIT D3) 5000 UNIT CAP PO SCH (08:39)
[2016-07-21] MEDS: SERTRALINE HCL 100 MG TAB PO SCH (08:42)
[2016-07-21] MEDS: ENOXAPARIN SODIUM 30 MG/0.3 ML SYRINGE SQ SCH (13:00)
[2016-07-21] MEDS: LACTATED RINGER'S 1000 ML INJ 1,000 ML IV SCH (13:01)
[2016-07-21] MEDS: PCA - TOTAL MG DILAUDID DELIVERED PER SHIFT OTHER SCH ×2 (13:29→22:00)
--- NOTE | 2016-07-21 17:40 | PD.CAR.PN ---
CVT Progress Note Subjective/Hospital Course: 55-year-old gentleman status post femoral to distal bypass using cephalic vein of the right arm Old incisions are clean and dry Patient has excellent pulses in the arm and harvest site is clean, dressing intact Right leg incision so nice and clean with dopplerable pulses and foot is nice and warm Excellent outcome of a very complex procedure We will remove all the dressings tomorrow Patient can be out of bed Objective: Vital Signs Date Time Temp Pulse Resp B/P Pulse Ox O2 Delivery O2 Flow Rate FiO2 07/21/16 17:00 114 07/21/16 16:52 18 07/21/16 16:10 99 07/21/16 16:06 18 07/21/16 15:53 106 07/21/16 15:53 98.0 95 18 138/86 95 07/21/16 15:53 96 Room Air 07/21/16 14:06 18 07/21/16 14:06 113 07/21/16 14:05 18 07/21/16 13:34 105 07/21/16 13:29 18 07/21/16 12:48 128 07/21/16 11:27 98.7 89 18 133/79 96 07/21/16 11:27 100 07/21/16 11:27 96 Room Air 07/21/16 10:07 99 21 07/21/16 10:01 93 07/21/16 09:27 104 07/21/16 08:30 99 Room Air 07/21/16 08:30 98.8 102 18 137/83 99 07/21/16 08:30 93 07/21/16 07:24 18 07/21/16 06:16 18 07/21/16 06:00 101 07/21/16 06:00 18 07/21/16 05:56 18 07/21/16 05:00 96 07/21/16 04:00 94 07/21/16 03:00 97 Nasal Cannula 2.00 07/21/16 03:00 98.6 98 18 120/73 97 07/21/16 03:00 96 07/21/16 02:00 98 07/21/16 01:00 98 07/21/16 00:00 100 07/20/16 23:46 18 07/20/16 23:00 98.8 102 18 127/84 99 07/20/16 23:00 106 07/20/16 23:00 99 Nasal Cannula 2.00 07/20/16 22:00 96 07/20/16 22:00 16 07/20/16 21:00 104 07/20/16 20:00 106 07/20/16 19:00 98.2 117 18 116/76 98 07/20/16 19:00 96 07/20/16 18:00 108 Result Diagram: 07/21/16 0355 07/21/16 0355 Blanco Bailey MD Jul 21, 2016 17:40
[2016-07-21] MEDS: ATORVASTATIN 80 MG TAB PO SCH (21:00)
[2016-07-21] MEDS: ZOLPIDEM TARTRATE 5 MG TAB PO PRN (22:44)
[2016-07-22] VITALS (26 sets, daily range): BP systolic 117–151; BP diastolic 74–90; PULSE 93–122; RESP 16–22; TEMP 98.7–99.5; O2SAT 93–98
[2016-07-22] MEDS: PCA - TOTAL MG DILAUDID DELIVERED PER SHIFT OTHER SCH ×3 (05:57→22:00)
[2016-07-22] MEDS: ALBUTEROL SULFATE 90 MCG/ACT HFA 18 GM INHALER INH SCH ×4 (09:00→21:00)
[2016-07-22] MEDS: CYANOCOBALAMIN 1,000 MCG TAB PO SCH (09:05)
[2016-07-22] MEDS: SERTRALINE HCL 100 MG TAB PO SCH (09:05)
[2016-07-22] MEDS: MULTIVITAMIN TAB PO SCH (09:05)
[2016-07-22] MEDS: DOCUSATE SODIUM 100 MG CAP PO SCH ×2 (09:05→21:50)
[2016-07-22] MEDS: LOSARTAN 50 MG TAB PO SCH (09:05)
[2016-07-22] MEDS: CLOPIDOGREL 75 MG TAB PO SCH (09:05)
[2016-07-22] MEDS: HYDROCHLOROTHIAZIDE 25 MG TAB PO SCH (09:05)
[2016-07-22] MEDS: CHOLECALCIFEROL (VIT D3) 5000 UNIT CAP PO SCH (09:05)
[2016-07-22] MEDS: ASPIRIN 81 MG CHEW TAB CHEW SCH (09:05)
[2016-07-22] MEDS: TIOTROPIUM BROMIDE 18 MCG INH INH SCH (09:06)
--- NOTE | 2016-07-22 09:32 | PD.CAR.PN ---
CVT Progress Note Subjective/Hospital Course: 55-year-old gentleman status post femoral to distal bypass using cephalic vein of the right arm Old incisions are clean and dry Patient has excellent pulses in the arm and harvest site is clean, dressing intact Right leg incision so nice and clean with dopplerable pulses and foot is nice and warm Excellent outcome of a very complex procedure We will remove all the dressings tomorrow Patient can be out of bed 07/22/16 Incisions are clean and dry Foot is warm and patient has dopplerable strong signal pulses Vein donor site is clean and dry as well and patient has good pulses in the arm Objective: Vital Signs Date Time Temp Pulse Resp B/P Pulse Ox O2 Delivery O2 Flow Rate FiO2 07/22/16 08:49 93 21 07/22/16 07:00 99.5 104 19 117/74 93 07/22/16 06:00 16 07/22/16 06:00 100 07/22/16 05:57 16 07/22/16 05:00 98 07/22/16 04:00 107 07/22/16 03:00 98.8 93 18 141/81 93 07/22/16 03:00 106 07/22/16 02:00 118 07/22/16 01:00 100 07/22/16 00:00 108 07/21/16 23:00 98.6 95 18 131/75 95 07/21/16 23:00 104 07/21/16 22:42 18 07/21/16 22:00 114 07/21/16 22:00 18 07/21/16 22:00 18 07/21/16 21:00 110 07/21/16 20:10 21 07/21/16 20:00 112 07/21/16 19:00 106 07/21/16 19:00 98.8 120 20 143/85 93 07/21/16 19:00 93 Room Air 07/21/16 18:00 101 07/21/16 17:00 114 07/21/16 16:52 18 07/21/16 16:10 99 07/21/16 16:06 18 07/21/16 15:53 106 07/21/16 15:53 98.0 95 18 138/86 95 07/21/16 15:53 96 Room Air 07/21/16 14:06 18 07/21/16 14:06 113 07/21/16 13:34 105 07/21/16 13:29 18 07/21/16 12:48 128 07/21/16 11:27 98.7 89 18 133/79 96 07/21/16 11:27 100 07/21/16 11:27 96 Room Air 07/21/16 10:07 99 21 07/21/16 10:01 93 Result Diagram: 07/21/16 0355 07/21/16 0355 Blanco Bailey MD Jul 22, 2016 09:32
[2016-07-22] MEDS: LACTATED RINGER'S 1000 ML INJ 1,000 ML IV SCH (11:00)
[2016-07-22] MEDS: HYDROmorphone HCL PCA 6 MG/30 ML IV SCH ×2 (11:01→18:40)
[2016-07-22] MEDS: ENOXAPARIN SODIUM 30 MG/0.3 ML SYRINGE SQ SCH (13:50)
[2016-07-22] MEDS: ATORVASTATIN 80 MG TAB PO SCH (21:50)
[2016-07-22] MEDS: ZOLPIDEM TARTRATE 5 MG TAB PO PRN (21:51)
[2016-07-23] VITALS (20 sets, daily range): BP systolic 124–153; BP diastolic 70–90; PULSE 90–119; RESP 18–22; TEMP 98–99; O2SAT 92–96
[2016-07-23] MEDS: HYDROmorphone HCL PCA 6 MG/30 ML IV SCH (05:04)
[2016-07-23] MEDS: PCA - TOTAL MG DILAUDID DELIVERED PER SHIFT OTHER SCH (06:00)
[2016-07-23] MEDS: ALBUTEROL SULFATE 90 MCG/ACT HFA 18 GM INHALER INH SCH ×4 (09:00→21:00)
[2016-07-23] MEDS: SERTRALINE HCL 100 MG TAB PO SCH (09:57)
[2016-07-23] MEDS: CHOLECALCIFEROL (VIT D3) 5000 UNIT CAP PO SCH (09:57)
[2016-07-23] MEDS: TIOTROPIUM BROMIDE 18 MCG INH INH SCH (09:57)
[2016-07-23] MEDS: ASPIRIN 81 MG CHEW TAB CHEW SCH (09:58)
[2016-07-23] MEDS: CLOPIDOGREL 75 MG TAB PO SCH (09:58)
[2016-07-23] MEDS: CYANOCOBALAMIN 1,000 MCG TAB PO SCH (09:58)
[2016-07-23] MEDS: DOCUSATE SODIUM 100 MG CAP PO SCH ×2 (09:58→20:21)
[2016-07-23] MEDS: LOSARTAN 50 MG TAB PO SCH (09:58)
[2016-07-23] MEDS: HYDROCHLOROTHIAZIDE 25 MG TAB PO SCH (09:58)
[2016-07-23] MEDS: MULTIVITAMIN TAB PO SCH (09:58)
--- NOTE | 2016-07-23 10:39 | PD.VS.PN ---
Subjective POD #: 3 Procedure(s): redo R fem-BK pop with R cephalic vein Subjective/Hospital Course Pain better controlled OOB no BM since surgery Jason po; voiding well c/w swelling R leg but no foot pain Objective Vitals/I&O Date Time Temp Pulse Resp B/P Pulse Ox O2 Delivery O2 Flow Rate FiO2 07/23/16 07:15 98.0 102 19 153/85 96 07/23/16 07:15 96 07/23/16 06:08 18 07/23/16 06:00 93 07/23/16 06:00 20 07/23/16 05:04 18 07/23/16 05:00 91 07/23/16 04:54 97 07/23/16 04:30 98.8 97 20 124/80 94 07/23/16 04:00 97 07/23/16 03:00 119 07/23/16 02:00 99 07/23/16 01:00 99 07/23/16 00:00 98.7 101 20 129/79 94 07/23/16 00:00 100 07/22/16 23:00 106 07/22/16 22:00 118 07/22/16 22:00 18 07/22/16 22:00 18 07/22/16 21:00 122 07/22/16 20:40 95 07/22/16 20:00 99.0 103 22 151/90 98 07/22/16 20:00 108 07/22/16 19:00 103 07/22/16 18:40 18 07/22/16 18:38 18 07/22/16 18:00 106 07/22/16 17:00 103 07/22/16 16:00 98 07/22/16 15:00 98.7 105 21 129/75 95 07/22/16 15:00 102 07/22/16 14:00 100 07/22/16 14:00 21 07/22/16 13:56 20 07/22/16 13:52 20 07/22/16 13:00 108 07/22/16 12:00 104 07/22/16 11:01 18 07/22/16 11:00 102 07/22/16 11:00 98.9 104 20 127/74 95 07/23/16 07/23/16 07/23/16 07:00 15:00 23:00 Intake Total 788 ml Output Total 350 ml Balance 438 ml Exam: R groin vac in place R lower leg incision c/d/i Modest post-surgical swelling R LE R UE ecchymotic but no hematoma, incision ok Pulses: strong Doppler signal R DP Assessment and Plan Assessment: (1) PAD (peripheral artery disease) Status: Chronic Plan s/p R fem-BK pop (redo) with R cephalic vein Look great, palpable pulse 1. D/C CREDIT CHARGE AUTHORIZER and HL IVF 2. po and IV breakthrough dilaudid 3. D/C tele 4. Pt may shower Marco Antonio Fernández MD Jul 23, 2016 10:39
[2016-07-23] MEDS ORDERED: HYDROmorphone HCL 2 MG TAB PO PRN ×2 (10:45→22:45)
[2016-07-23] MEDS: ENOXAPARIN SODIUM 30 MG/0.3 ML SYRINGE SQ SCH (13:26)
[2016-07-23] MEDS: HYDROmorphone HCL PF 1 MG/ML VIAL IV PRN ×2 (13:27→18:02)
[2016-07-23] MEDS: BISACODYL EC 5 MG TABEC PO PRN (13:46)
[2016-07-23] MEDS: HYDROmorphone HCL PF 1 MG/ML VIAL IV PUSH PRN (20:19)
[2016-07-23] MEDS: ATORVASTATIN 80 MG TAB PO SCH (20:21)
[2016-07-23] MEDS: HYDROmorphone HCL 2 MG TAB PO PRN (20:46)
[2016-07-23] MEDS: ZOLPIDEM TARTRATE 5 MG TAB PO PRN (20:50)
[2016-07-24] VITALS (7 sets, daily range): BP systolic 102–138; BP diastolic 59–89; PULSE 79–109; RESP 18–21; TEMP 98.1–99; O2SAT 95–100
[2016-07-24] MEDS: HYDROmorphone HCL PF 1 MG/ML VIAL IV PUSH PRN ×6 (00:08→23:38)
[2016-07-24] MEDS: HYDROmorphone HCL 2 MG TAB PO PRN ×6 (00:22→21:47)
[2016-07-24] MEDS ORDERED: [UNRECOGNIZED DRUG - OTHER] (08:35)
[2016-07-24] MEDS: CYANOCOBALAMIN 1,000 MCG TAB PO SCH (08:38)
[2016-07-24] MEDS: LOSARTAN 50 MG TAB PO SCH (08:39)
[2016-07-24] MEDS: BISACODYL EC 5 MG TABEC PO PRN (08:39)
[2016-07-24] MEDS: SERTRALINE HCL 100 MG TAB PO SCH (08:39)
[2016-07-24] MEDS: DOCUSATE SODIUM 100 MG CAP PO SCH ×2 (08:39→21:46)
[2016-07-24] MEDS: CHOLECALCIFEROL (VIT D3) 5000 UNIT CAP PO SCH (08:39)
[2016-07-24] MEDS: ALBUTEROL SULFATE 90 MCG/ACT HFA 18 GM INHALER INH SCH ×4 (08:40→21:00)
[2016-07-24] MEDS: MULTIVITAMIN TAB PO SCH (08:40)
[2016-07-24] MEDS: TIOTROPIUM BROMIDE 18 MCG INH INH SCH (08:40)
[2016-07-24] MEDS: ASPIRIN 81 MG CHEW TAB CHEW SCH (08:40)
[2016-07-24] MEDS: HYDROCHLOROTHIAZIDE 25 MG TAB PO SCH (08:40)
[2016-07-24] MEDS: CLOPIDOGREL 75 MG TAB PO SCH (08:40)
--- NOTE | 2016-07-24 10:36 | PD.VS.PN ---
Subjective POD #: 5 Procedure(s): redo R fem-BK pop with R cephalic vein Subjective/Hospital Course Pt in bed alert and in nad Pain controlled Mild swelling to right foot present Wound Vac to Right groin removed w/o difficulty No BM + Flatulence Objective Vitals/I&O Date Time Temp Pulse Resp B/P Pulse Ox O2 Delivery O2 Flow Rate FiO2 07/24/16 08:23 98.1 79 21 114/74 100 07/24/16 04:00 98.4 109 20 130/74 95 07/24/16 00:00 98.7 100 20 125/89 95 07/23/16 20:00 99.0 107 22 151/90 95 07/23/16 18:08 21 07/23/16 15:30 98.1 93 21 124/70 96 07/23/16 14:34 20 07/23/16 13:00 90 07/23/16 12:00 97 07/23/16 11:00 98.0 95 19 129/77 92 07/23/16 11:00 101 07/24/16 07/24/16 07/24/16 07:00 15:00 23:00 Intake Total 240 ml Output Total 400 ml Balance -160 ml Exam: GENERAL: Alert in nad, GCS 15 SKIN: Warm and dry. Incisions to Right arm/groin/upper and lower R leg intact with surgical glue. NO S/R/D present CARDIOVASCULAR: +S1,S2 RESPIRATORY: BS CTA GASTROINTESTINAL: Abdomen S/NT + BS MUSCULOSKELETAL: No cyanosis/ mild 1+ edema to right foot Pulses: + triphasic DP/PT (Bilat) heard via Doppler Bilat feet warm to touch Incisions: Intact with surgical glue NO R/D/S/O Assessment and Plan Assessment: (1) PAD (peripheral artery disease) Status: Chronic Plan s/p R fem-BK pop (redo) with R cephalic vein Look great, palpable pulse Plan PT/OOB Right groin wound vac removed Encourage ambulation as tolerated Shannon BELL [facility]/[place] [phone] Discharge Planning 1-2 days Shannon Haque Jul 24, 2016 10:36
[2016-07-24] MEDS ORDERED: MINERAL OIL ENEMA 118 ML BTL RECTAL PRN (11:00)
[2016-07-24] MEDS: ENOXAPARIN SODIUM 30 MG/0.3 ML SYRINGE SQ SCH (13:18)
[2016-07-24] MEDS: ATORVASTATIN 80 MG TAB PO SCH (21:46)
[2016-07-24] MEDS: ZOLPIDEM TARTRATE 5 MG TAB PO PRN (23:37)
[2016-07-25 03:00] VITALS: BP 144/83; PULSE 90; RESP 18; TEMP 99; O2SAT 97
[2016-07-25] MEDS: HYDROmorphone HCL PF 1 MG/ML VIAL IV PUSH PRN ×5 (03:35→20:45)
[2016-07-25] MEDS: HYDROmorphone HCL 2 MG TAB PO PRN ×3 (06:05→22:30)
[2016-07-25 08:04] VITALS: BP 124/78; PULSE 87; RESP 18; TEMP 98.5; O2SAT 95
[2016-07-25] MEDS: CHOLECALCIFEROL (VIT D3) 5000 UNIT CAP PO SCH (08:10)
[2016-07-25] MEDS: DOCUSATE SODIUM 100 MG CAP PO SCH ×2 (08:10→20:44)
[2016-07-25] MEDS: ASPIRIN 81 MG CHEW TAB CHEW SCH (08:10)
[2016-07-25] MEDS: MULTIVITAMIN TAB PO SCH (08:11)
[2016-07-25] MEDS: LOSARTAN 50 MG TAB PO SCH (08:11)
[2016-07-25] MEDS: SERTRALINE HCL 100 MG TAB PO SCH (08:11)
[2016-07-25] MEDS: CYANOCOBALAMIN 1,000 MCG TAB PO SCH (08:11)
[2016-07-25] MEDS: CLOPIDOGREL 75 MG TAB PO SCH (08:11)
[2016-07-25] MEDS: HYDROCHLOROTHIAZIDE 25 MG TAB PO SCH (08:11)
[2016-07-25] MEDS: TIOTROPIUM BROMIDE 18 MCG INH INH SCH (08:12)
[2016-07-25] MEDS: ALBUTEROL SULFATE 90 MCG/ACT HFA 18 GM INHALER INH SCH ×4 (08:12→20:47)
--- NOTE | 2016-07-25 09:50 | PD.VS.PN ---
Subjective POD #: 6 Procedure(s): redo R fem-BK pop with R cephalic vein Subjective/Hospital Course Pt sitting up in bed eating breakfast Pt is w/o complaints + BM times 2 yesterday Pt ambulating well with PT Objective Vitals/I&O Date Time Temp Pulse Resp B/P Pulse Ox O2 Delivery O2 Flow Rate FiO2 07/25/16 08:04 98.5 87 18 124/78 95 07/25/16 04:07 18 07/25/16 03:00 99.0 90 18 144/83 97 07/24/16 23:00 99.0 100 18 117/72 98 07/24/16 22:57 18 07/24/16 19:00 98.8 100 20 138/84 96 07/24/16 15:08 98.7 94 20 137/70 98 07/24/16 11:15 98.3 97 19 102/59 97 07/25/16 07/25/16 07/25/16 07:00 15:00 23:00 Intake Total 720 ml Balance 720 ml Exam: GENERAL: A&OX3,NAD,GCS 15 SKIN: Warm and dry/Incisions to Right arm/groin/upper and lower R leg intact with surgical glue. NO S/R/D present CARDIOVASCULAR: +S1,S2 RESPIRATORY: BS CTA GASTROINTESTINAL: Abdomen S/NT + BS/+ BM times 2 MUSCULOSKELETAL: No cyanosis/ mild 1+ edema to right foot Pulses: + triphasic DP/PT (Bilat) heard via Doppler Bilat feet warm to touch Assessment and Plan Assessment: (1) PAD (peripheral artery disease) Status: Chronic Plan s/p R fem-BK pop (redo) with R cephalic vein Look great, palpable pulse Plan Continue PT/OOB Encourage ambulation as tolerated D/C planning Shannon BELL [facility] [phone] Discharge Planning Tomorrow AM Shannon Haque Jul 25, 2016 09:50
--- NOTE | 2016-07-25 09:54 | HHI.FF ---
Face to Face Verification Diagnosis: (1) PAD (peripheral artery disease) (2) Ischemia of right lower extremity (3) Foot pain, right Physical Therapy Order: Evaluate and Treat, Improve ambulation, Strength and gait training Home Health Nursing Order: Signs/symptoms of disease process Home Health Aide Order: To Assist In: Bathing and personal care Instructions: Personal Care Management I have seen patient Olu Alvarez on 07/25/16. My clinical findings support the need for the requested home health care services because: Pt is S/ P post redo R fem-BK pop with R cephalic vein, pt will need PT to aid in optimal healing and strengthening of LE Ltd mobility - disease progression High risk of falls I certify that my clinical findings support that this patient is homebound because: Pt is doing well post op but will need PT assistance to aid in optimal healing and strengthening of LE Post-op weakness Unsteady gait/balance Shannon Haque Jul 25, 2016 09:54
[2016-07-25 11:00] VITALS: BP 119/68; PULSE 83; RESP 17; TEMP 98.1; O2SAT 96
--- NOTE | 2016-07-25 11:14 | PD.VS.DC ---
Discharge Summary Admission Date: Jul 17, 2016 at 12:33 Discharge Date: Jul 26, 2016 Admission Diagnosis: (1) PAD (peripheral artery disease) Discharge Diagnosis: (1) PAD (peripheral artery disease) Status: Chronic Brief History from admission Mr. Alvarez is a pleasant 55/M patient with a PMH of COPD, Hyperlipidemia, HTN and PVD. Pt was seen in our out patient clinic in May 2016 who then c/o Right worsening calf pain when walking a 1/4 mile with intermittent sudden onset of RLE feeling cold and discolored, pt reported these episodes started 15 months ago on and off with last episode in April of this year. No new episodes reported today. Pt overall feels well with no change since last assessment in May. Mr. Alvarez has had bilateral lower extremity bypasses 2 interventions on the right, however he has had multiple interventions for graft thromboses, by his estimate he has had 8 distinct episodes of arterial lysis on the RLE most recently in March and April of this year. The last episodes have been during the time the patient has been on systemic anticoagulation with Coumadin. Procedure(s): redo R fem-BK pop with R cephalic vein Significant Findings GENERAL: Alert in nad, GCS 15 SKIN: Warm and dry. Incisions to Right arm/groin/upper and lower R leg intact with surgical glue. NO S/R/D present CARDIOVASCULAR: +S1,S2 RESPIRATORY: BS CTA GASTROINTESTINAL: Abdomen S/NT + BS MUSCULOSKELETAL: No cyanosis/ mild 1+ edema to right foot Pulses: + triphasic DP/PT (Bilat) heard via Doppler Bilat feet warm to touch Incisions: Intact with surgical glue NO R/D/S/O Hospital Course: Mr. Alvarez is a pleasant 55/M patient with a PMH of COPD, Hyperlipidemia, HTN and PVD. Pt was seen in our out patient clinic in May 2016 who then c/o Right worsening calf pain when walking a 1/4 mile with intermittent sudden onset of RLE feeling cold and discolored, pt reported these episodes started 15 months ago on and off with last episode in April of this year. No new episodes reported S/p vascular intervention (Redo R fem-BK pop with R cephalic vein) Pt has done well post op and will go home with OP PT Will see pt in our opc for follow up and continued patient care Allergies Coded Allergies Type Severity Reaction Last Updated Verified No Known Allergies 04/16/15 Yes ////// 06:00 18:00 06:00 18:00 06:00 18:00 Intake Total 788 ml 960 ml 600 ml 720 ml Output Total 350 ml 400 ml Balance 438 ml 560 ml 600 ml 720 ml Intake Oral 420 ml 960 ml 600 ml 720 ml IV Total 368 ml Output Urine Total 350 ml 400 ml # Voids 6 5 4 # Bowel Movements 0 1 1 Procedure Category Date Status Time Bisacodyl Ec MED 07/23/16 In Process (Dulcolax Ec) 10:45 Hydromorphone MED 07/23/16 Complete (Dilaudid) 10:45 ^ Other Nursing Orders PAZ 07/23/16 In Process 10:39 ^ Other Nursing Orders PAZ 07/23/16 In Process 10:39 Remove Cardiac PAZ 07/23/16 In Process Telemetry 13:04 Hydromorphone Pf Inj MED 07/23/16 Complete (Dilaudid Pf Inj) 13:15 Hydromorphone MED 07/23/16 In Process (Dilaudid) 22:00 Hydromorphone MED 07/23/16 In Process (Dilaudid) 22:45 Hydromorphone Pf Inj MED 07/23/16 Complete (Dilaudid Pf Inj) 20:15 Hydromorphone Pf Inj MED 07/24/16 In Process (Dilaudid Pf Inj) 10:30 Mineral Oil Enema MED 07/24/16 In Process (Fleet Mineral Oil Lissette 11:00 Consult Pt Eval & Tx PT 07/24/16 Complete OOB 10:37 Vital Signs Date Time Temp Pulse Resp B/P Pulse Ox O2 Delivery O2 Flow Rate FiO2 07/25/16 08:04 98.5 87 18 124/78 95 07/25/16 04:07 18 07/25/16 03:00 99.0 90 18 144/83 97 07/24/16 23:00 99.0 100 18 117/72 98 07/24/16 22:57 18 07/24/16 19:00 98.8 100 20 138/84 96 07/24/16 15:08 98.7 94 20 137/70 98 07/24/16 11:15 98.3 97 19 102/59 97 07/24/16 08:23 98.1 79 21 114/74 100 07/24/16 04:00 98.4 109 20 130/74 95 07/24/16 00:00 98.7 100 20 125/89 95 07/23/16 20:00 99.0 107 22 151/90 95 07/23/16 18:08 21 07/23/16 15:30 98.1 93 21 124/70 96 07/23/16 14:34 20 07/23/16 13:00 90 07/23/16 12:00 97 07/23/16 11:00 98.0 95 19 129/77 92 07/23/16 11:00 101 07/23/16 10:00 104 07/23/16 09:00 102 07/23/16 08:00 98 07/23/16 07:15 98.0 102 19 153/85 96 07/23/16 07:15 96 07/23/16 06:08 18 07/23/16 06:00 93 07/23/16 06:00 20 07/23/16 05:04 18 07/23/16 05:00 91 07/23/16 04:54 97 07/23/16 04:30 98.8 97 20 124/80 94 07/23/16 04:00 97 07/23/16 03:00 119 07/23/16 02:00 99 07/23/16 01:00 99 07/23/16 00:00 98.7 101 20 129/79 94 07/23/16 00:00 100 07/22/16 23:00 106 07/22/16 22:00 118 07/22/16 22:00 18 07/22/16 22:00 18 07/22/16 21:00 122 07/22/16 20:40 95 07/22/16 20:00 99.0 103 22 151/90 98 07/22/16 20:00 108 07/22/16 19:00 103 07/22/16 18:40 18 07/22/16 18:38 18 07/22/16 18:00 106 07/22/16 17:00 103 07/22/16 16:00 98 07/22/16 15:00 98.7 105 21 129/75 95 07/22/16 15:00 102 07/22/16 14:00 100 07/22/16 14:00 21 07/22/16 13:56 20 07/22/16 13:52 20 07/22/16 13:00 108 07/22/16 12:00 104 Discharge Condition: Good Discharge Disposition: Discharge Home Discharge Instructions: Follow up in our OPC on 08/04/16 at 0930 Call the office to report and new onset fever, chills, increased redness, swelling, drainage or odor to incision sites MAY Shower NO Tub Baths, Swimming, or Submerging in the ocean while incisions are healing Take prescribed pain medication as needed with an over the counter stool softener as it may cause constipation Do not apply any creams or ointments to incision sites as it may loosen the surgical glue Shannon BELL [facility]/[place] [phone] Any questions or concerns: Call [facility] at [facility] [phone] Shannon Haque Jul 25, 2016 11:14
[2016-07-25] MEDS: ENOXAPARIN SODIUM 30 MG/0.3 ML SYRINGE SQ SCH (12:34)
[2016-07-25 15:07] VITALS: BP 126/81; PULSE 105; RESP 19; TEMP 99.2; O2SAT 98
[2016-07-25 20:15] VITALS: BP 139/78; PULSE 91; RESP 16; TEMP 98.9; O2SAT 98
[2016-07-25] MEDS: ATORVASTATIN 80 MG TAB PO SCH (20:44)
[2016-07-25] MEDS: BISACODYL EC 5 MG TABEC PO PRN (20:44)
[2016-07-25] MEDS: ZOLPIDEM TARTRATE 5 MG TAB PO PRN (22:30)
[2016-07-25 23:45] VITALS: BP 141/82; PULSE 93; RESP 18; TEMP 98.8; O2SAT 98
[2016-07-26] MEDS: HYDROmorphone HCL PF 1 MG/ML VIAL IV PUSH PRN ×2 (01:02→05:07)
[2016-07-26] MEDS: HYDROmorphone HCL 2 MG TAB PO PRN ×2 (03:00→08:25)
[2016-07-26 03:25] VITALS: BP 135/82; PULSE 93; RESP 18; TEMP 98.6; O2SAT 98
[2016-07-26 08:00] VITALS: BP 141/87; PULSE 93; RESP 16; TEMP 98.4; O2SAT 97
[2016-07-26] MEDS: TIOTROPIUM BROMIDE 18 MCG INH INH SCH (08:23)
[2016-07-26] MEDS: MULTIVITAMIN TAB PO SCH (08:24)
[2016-07-26] MEDS: DOCUSATE SODIUM 100 MG CAP PO SCH (08:24)
[2016-07-26] MEDS: SERTRALINE HCL 100 MG TAB PO SCH (08:24)
[2016-07-26] MEDS: CHOLECALCIFEROL (VIT D3) 5000 UNIT CAP PO SCH (08:24)
[2016-07-26] MEDS: CYANOCOBALAMIN 1,000 MCG TAB PO SCH (08:24)
[2016-07-26] MEDS: ASPIRIN 81 MG CHEW TAB CHEW SCH (08:24)
[2016-07-26] MEDS: CLOPIDOGREL 75 MG TAB PO SCH (08:24)
[2016-07-26] MEDS: HYDROCHLOROTHIAZIDE 25 MG TAB PO SCH (08:25)
[2016-07-26] MEDS: ALBUTEROL SULFATE 90 MCG/ACT HFA 18 GM INHALER INH SCH (08:25)
[2016-07-26] MEDS: LOSARTAN 50 MG TAB PO SCH (08:25)
[2016-07-26] MEDS ORDERED: PLAV75TA29 PO (08:51)
[2016-07-26] MEDS ORDERED: DILA2TAB2 PO (08:51)
--- NOTE | 2016-07-26 08:55 | PD.VS.PN ---
Subjective POD #: 7 Procedure(s): redo R fem-BK pop with R cephalic vein Subjective/Hospital Course Pt in NAD alert w/o complaints Objective Vitals/I&O Date Time Temp Pulse Resp B/P Pulse Ox O2 Delivery O2 Flow Rate FiO2 07/26/16 03:25 98.6 93 18 135/82 98 07/25/16 23:45 98.8 93 18 141/82 98 07/25/16 20:15 98.9 91 16 139/78 98 07/25/16 17:09 21 07/25/16 15:07 99.2 105 19 126/81 98 07/25/16 11:00 98.1 83 17 119/68 96 07/26/16 07/26/16 07/26/16 07:00 15:00 23:00 Intake Total 706 ml Balance 706 ml Exam: GENERAL: A&OX3,NAD,GCS 15 SKIN: Warm and dry/Incisions to Right arm/groin/upper and lower R leg intact with surgical glue. NO S/R/D present CARDIOVASCULAR: +S1,S2 RESPIRATORY: BS CTA GASTROINTESTINAL: Abdomen S/NT + BS MUSCULOSKELETAL: No cyanosis/ mild 1+ edema to right foot Pulses: + triphasic DP/PT (Bilat) heard via Doppler Bilat feet warm to touch Motor Intact Incisions: Clean and Dry intact with surgical glue Assessment and Plan Assessment: (1) PAD (peripheral artery disease) Status: Chronic Plan s/p R fem-BK pop (redo) with R cephalic vein Look great, palpable pulse Plan D/C today Will see patient for follow up in 2W Appointment time and date was given to pt Shannon BELL [facility] [phone] Discharge Planning AM Shannon Haque Jul 26, 2016 08:55
== END 2016-07-26 09:31 | disposition home or self-care (01) | DRG 254 ==
LOC: HCIN 12:33
PROVIDERS: ADMIT Surgery; ATTEND Surgery
PROC: B41F1ZZ Fluoroscopy of Right Lower Extremity Arteries using Low Osmolar Contrast (ICD-10-PCS; 2016-07-19)
PROC: B4101ZZ Fluoroscopy of Abdominal Aorta using Low Osmolar Contrast (ICD-10-PCS; 2016-07-19)
PROC: 05BD0ZZ Excision of Right Cephalic Vein, Open Approach (ICD-10-PCS; 2016-07-20)
PROC: 041K09L Bypass Right Femoral Artery to Popliteal Artery with Autologous Venous Tissue, Open Approach (ICD-10-PCS; principal; 2016-07-20 07:51)
DX: T82.898A Other specified complication of vascular prosthetic devices, implants and grafts, initial encounter (principal); I10 Essential (primary) hypertension; J44.9 Chronic obstructive pulmonary disease, unspecified; I73.9 Peripheral vascular disease, unspecified; E78.5 Hyperlipidemia, unspecified; I77.1 Stricture of artery; F10.10 Alcohol abuse, uncomplicated; F12.90 Cannabis use, unspecified, uncomplicated; F17.210 Nicotine dependence, cigarettes, uncomplicated; Y83.2 Surgical operation with anastomosis, bypass or graft as the cause of abnormal reaction of the patient, or of later complication, without mention of misadventure at the time of the procedure; Z79.01 Long term (current) use of anticoagulants
CPT/HCPCS: 36246; 75625; 75710; 76937; 80048; 85027; 85610; 86850; 86900; 86901; C1769; J0131; J0690; J1170; J1644; J1650; J2250; J2270; J2405; J2710; J2720; J3010; J7040; J7120; J7613; Q9967

== ENCOUNTER 2016-08-28 06:01 | Day surgery (SDC) | payer MEDICARE, OTHER ==
[~2016-08-28] VITALS: Ht 175.3 cm; Wt 74.2 kg
[~2016-08-28 06:01] MED LIST changes: -ADVAI250I PO; +ALBUAER3 INH; -APIX5 PO; +ASPI81CH37 CHEW; +ATOR1TAB18 PO; -BENI20TA25 PO; -CHOL50006 PO; -CLOP75 PO; +DILA2TAB2 PO; +HYDR25TA5 PO; -IPRAAER IN; +IPRAAER INH; +LACTCAP8 PO; -LIPI20TA PO; +MULTTAB67 PO; +OLME0.09 PO; +PLAV75TA29 PO; -PROBCAP4 PO; -TAB-TAB PO; +VITA100064 PO; +VITA500T49 PO; +ZOLO100T PO; +[UNRECOGNIZED DRUG - OTHER]
[2016-08-28] MEDS ORDERED: SODIUM CHLORIDE 0.9% FLUSH 10 ML FLUSH IV FLUSH PRN (06:45)
[2016-08-28] MEDS ORDERED: SODIUM CHLOR 0.9% 1000 ML INJ 1,000 ML IV SCH (06:45)
[2016-08-28] MEDS ORDERED: SODIUM BICARBONATE 100 MEQ in D5W 1000 ML IV SCH (06:45)
[2016-08-28 07:09] LABS: AUTOMATED NEUTROPHIL # 5.2 TH/MM3 (1.8-7.7); BASOPHIL # 0.1 TH/MM3 (0-0.2); BASOPHIL % 0.7 % (0.0-2.0); EOSINOPHIL # 0.2 TH/MM3 (0-0.4); EOSINOPHIL % 2.7 % (0.0-4.0); HEMATOCRIT 39.7 % (39.0-51.0); HEMO FLAGS DIFF FINAL; LYMPH % 22.6 % (9.0-44.0); LYMPHOCYTE # 1.9 TH/MM3 (1.0-4.8); MEAN CELL VOLUME 95.5 FL (80.0-100.0); MEAN CORPUSCULAR HEMOGLOBIN 31.9 PG (27.0-34.0); MEAN CORPUSCULAR HGB CONC 33.4 % (32.0-36.0); MONO % 10.8 % (0.0-8.0); NEUT % 63.2 % (16.0-70.0); PLATELET COUNT 214 TH/MM3 (150-450); RED BLOOD COUNT 4.16 MIL/MM3 (4.50-5.90); RED CELL DISTRIBUTION WIDTH 14.8 % (11.6-17.2); WHITE BLOOD COUNT 8.2 TH/MM3 (4.0-11.0)
[2016-08-28 07:18] LABS: APTT (PATIENT) 28.3 SEC (24.3-30.1); INTERNATIONAL NORMALIZED RATIO 0.9 RATIO; PROTHROMBIN TIME - PATIENT 9.7 SEC (9.8-11.6)
[2016-08-28 07:32] LABS: BICARBONATE 23.8 MEQ/L (21.0-32.0); POTASSIUM 3.8 MEQ/L (3.5-5.1)
[2016-08-28] MEDS ORDERED: OXYC1TAB13 PO (07:34)
[2016-08-28 07:36] VITALS: BP 131/85; PULSE 85; RESP 18; O2SAT 98
--- NOTE | 2016-08-28 09:30 | HHI.HP ---
History of Present Illness Chief Complaint: R LE abnormal graft scan History of Present Illness 55 yo male with h/o multiple B LE bypasses, R one lysed x 8 elsewhere. Ultimately underwent R fem-BK pop with R cephalic vein. Abnormal graft scan so angio today. Notes post-operative calf soreness but no rest pain. Past/Family/Social History Past Medical History COPD HTN XOL PAD Past Surgical History as above Social History + tobacco and cannibis Family History NC Home Medications Active Scripts Hydromorphone (Dilaudid)2 Mg Tab2 Mg PO Q4H PRN (PAIN SCALE 6 TO 10) #30 TAB Ref 0 Prov:Shannon Haque CLINICAL LAB SPECIALIST 07/26/16 Clopidogrel (Plavix)75 Mg Tab75 Mg PO DAILY #30 TAB Ref 6 Prov:Shannon Haque CLINICAL LAB SPECIALIST 07/26/16 Reported Medications Oxycodone (Roxicodone)5 Mg Tab5 Mg PO Q4HR Ref 0 08/28/16 Cyanocobalamin (Vitamin B12)500 Mcg Tab1,000 Mcg PO DAILY #1 BOTTLE 07/17/16 Sertraline (Zoloft)100 Mg Pdu655 Mg PO DAILY #30 TAB Ref 0 07/17/16 Hydrochlorothiazide 25 Mg Tab25 Mg PO DAILY #30 TAB Ref 0 07/17/16 Aspirin (Aspirin Low Dose)81 Mg Chew81 Mg CHEW DAILY Ref 0 07/17/16 Olmesartan 20 Mg Tab20 Mg PO DAILY #30 TAB Ref 0 07/17/16 Multiple Vitamin 1 Tab1 Tab PO DAILY Ref 0 07/17/16 Albuterol 8.5 GM Inh (Proair Hfa 8.5 GM Inh)90 Mcg/Act Aer2 Puff INH Q4-6H PRN ( SHORTNESS OF BREATH) #1 INHALER Ref 0 108 mcg/actuation 07/17/16 Ipratropium-Albuterol Inh (Combivent Respimat Inh)20-100 Fpc/Act Aero1 Puff INH QID #1 INHALER Ref 0 07/17/16 Atorvastatin 80 Mg Tab80 Mg PO HS #30 TAB Ref 0 07/17/16 Cholecalciferol (Vitamin D3)1,000 Unit Tab5,000 Units PO DAILY #1 BOTTLE Ref 0 07/17/16 Discontinued Reported Medications Lactobacillus Acidophilus (Probiotic)1 Cap Cap1 Cap PO TIDAC #90 CAP Ref 0 07/17/16 Discontinued Scripts Wheel Chair K1 Basic Desk 1 Mis Mis #1 Ea .route As Directed Prov:Shannon Haque CLINICAL LAB SPECIALIST 07/24/16 Coded Allergies: No Known Allergies (Verified , 04/16/15) Review of Systems Constitutional: DENIES: Fever Cardiovascular: COMPLAINS OF: Lower Extremity Edema, DENIES: Chest pain, Syncope Physical Exam Vitals/I&O Date Time Temp Pulse Resp B/P Pulse Ox O2 Delivery O2 Flow Rate FiO2 08/28/16 07:36 85 18 131/85 98 Neuro: alert, no distress HEENT: NC/AT Neck: no JVD Heart: reg rate, no M Lungs: clear B Vascular: healed incisions, no palpable pulse R LE pedal but feet warm Laboratory Tests Test 08/28/16 06:30 White Blood Count 8.2 Red Blood Count 4.16 Hemoglobin 13.3 Hematocrit 39.7 Mean Corpuscular Volume 95.5 Mean Corpuscular Hemoglobin 31.9 Mean Corpuscular Hemoglobin 33.4 Concent Red Cell Distribution Width 14.8 Platelet Count 214 Mean Platelet Volume 8.6 Neutrophils (%) (Auto) 63.2 Lymphocytes (%) (Auto) 22.6 Monocytes (%) (Auto) 10.8 Eosinophils (%) (Auto) 2.7 Basophils (%) (Auto) 0.7 Neutrophils # (Auto) 5.2 Lymphocytes # (Auto) 1.9 Monocytes # (Auto) 0.9 Eosinophils # (Auto) 0.2 Basophils # (Auto) 0.1 CBC Comment DIFF FINAL Differential Comment Prothrombin Time 9.7 Prothromb Time International 0.9 Ratio Activated Partial 28.3 Thromboplast Time Sodium Level 138 Potassium Level 3.8 Chloride Level 107 Carbon Dioxide Level 23.8 Anion Gap 7 Blood Urea Nitrogen 19 Creatinine 1.00 Estimat Glomerular Filtration 77 Rate Random Glucose 105 Calcium Level 9.2 Assessment and Plan Plan R LE angiogram and possible intervention today. No pre-operative changes that would preclude OR today. Marco Antonio Fernández MD Aug 28, 2016 09:30
[2016-08-28] MEDS ORDERED: HEPARIN SODIUM - IV 10,000 UNITS/10 ML VIAL ONE (09:51)
[2016-08-28] MEDS ORDERED: MIDAZOLAM HCL 5 MG/ML VIAL (1 ML) ONE (09:52)
[2016-08-28] MEDS ORDERED: IOHEXOL 300 MG/ML 100 ML BTL (for Rad CT) OTHER ONE (10:16)
[2016-08-28] MEDS ORDERED: IOHEXOL 300 MG/ML 50 ML BTL (for RAD DIAG) OTHER ONE (10:16)
--- NOTE | 2016-08-28 10:44 | HHI.PR ---
Immediate Post Op Note Procedure Date: Aug 28, 2016 Pre Op Diagnosis: failing R LE bypass Post Op Diagnosis: failed R LE bypass Surgeon: Marco Antonio Fernández Editorial Assistant(s): none Procedure: Aortogram w/ R LE angiogram Findings: occluded bypass profunda collaterals to BK popliteal artery Additional Information: L AUDIO VISUAL COLLECTIONS COORDINATOR angioseal Complications: none apparent Specimen(s) removed: none Estimated blood loss: 5mL Anesthesia: MAC Drains: None Patient to: Other (DOCU) Patient Condition: Good Date/Time of Procedure: SEE SURGICAL CARE RECORD Marco Antonio Fernández MD Aug 28, 2016 10:44
--- NOTE | 2016-08-28 12:19 | MP ---
cc: RODRICK FERNÁNDEZ MD DATE OF SURGERY 08/28/2016 PREOPERATIVE DIAGNOSIS Failing right lower extremity bypass. POSTOPERATIVE DIAGNOSES Failed right lower extremity bypass. Peripheral vascular occlusive disease. ATTENDING SURGEON Rodrick Fernández MD GLOBAL MARKETING SPECIALIST None. ANESTHESIA Local with sedation. INDICATIONS Mr. Alvarez is a 55-year-old gentleman with a history of several right lower extremity bypasses, most recently done with cephalic vein. Prior graft scan was suggestive of stenosis and he was taken to the operating room for angiographic evaluation and treatment. There is no prior catheterization films available for my review. DESCRIPTION OF PROCEDURE Informed consent was obtained. The patient was taken to the operating room and placed supine on the operating room table. Appropriate time-out was taken to identify the patient's name, date and the planned procedure and everyone in the room agreed with the time-out. We proceeded. His bilateral groins were prepped and draped. The left groin was anesthetized with 1% lidocaine. A 21-gauge micropuncture needle was used to access the left common femoral artery. This was exchanged using Seldinger technique through the micropuncture sheath through which a 0.035 Glidewire was introduced. The micropuncture sheath was exchanged for a 5-Fijian sheath and a VCF catheter was placed over the wire through the sheath and a downward aortogram and pelvic arteriogram was obtained. The Glidewire was then introduced and navigated down to the right common femoral artery. The VCF catheter was advanced over this and right lower extremity arteriogram obtained. The wire, catheter and sheath were removed and the groin was closed with AngioSeal. There were no complications. I was present and scrubbed for the entire procedure. INTERPRETATION OF IMAGES This patient has a patent infrarenal aorta without any hemodynamically significant stenoses. The bilateral hypogastric arteries are patent but diminutive. The common iliac and external iliac arteries are patent. The right common femoral artery is patent. The profunda is patent. The origin of the SFA which is patent but the mid-SFA occludes. The patent bypass is occluded. The below-knee popliteal artery is reconstituted via profunda based collaterals. MD MARIANELA Newman/JESSICA /10:53 AM /12:03 PM JOVI
== END 2016-08-28 13:11 | disposition home or self-care (01) ==
LOC: HSDC 06:01 → HDIC 06:21 → HSDC 13:11
PROVIDERS: ATTEND Surgery
DX: T82.858A Stenosis of other vascular prosthetic devices, implants and grafts, initial encounter (principal); Z79.01 Long term (current) use of anticoagulants
CPT/HCPCS: 36247; 75710; 80048; 85025; 85610; 85730; C1769; G0269; J1644; J2250; J3010; J7070; Q9967